=== PATIENT | male | born 1980 | race African-American/Black ===

== ENCOUNTER 2016-09-01 21:57 | Emergency (ER) | payer BC, OTHER ==
[2016-09-01] MEDS ORDERED: Ibuprofen 800 MG TAB ONE (22:12)
--- NOTE | 2016-09-01 22:38 | RAD ---
3 VIEWS OF RIGHT HAND: Date: 09/01/16 COMPARISON: None available. HISTORY: Right hand/thumb injury. FINDINGS: There is a lucent lesion within the mid shaft of the fifth proximal phalanx measuring 1.5 cm, likely on the basis of an enchondroma. There is no acute fracture or evidence of dislocation seen. IMPRESSION: No acute fracture or dislocation noted. POS: [facility]
--- NOTE | 2016-09-02 00:55 | ERRECORD ---
[facility] EMERGENCY RECORD HPI HAND (22:12 JROB) CHIEF COMPLAINT: Patient presents for evaluation of injury, to the right hand. HISTORIAN: History provided by patient, 36 year old male presents with worsening pain and swelling in right hand and thumb after injury yesterday. He was holding a lead rope when a horse got loose and when the horse leaned against the rope it pulled hard against his hand. MECHANISM OF INJURY: Known mechanism. LOCATION: Symptoms are localized, most severe in the first metacarpal, most severe to the thumb. SEVERITY: Current severity of pain rated as 8/10. TIME COURSE: Sudden onset of symptoms, Symptoms are worsening. ASSOCIATED WITH: No associated clavicle pain, No associated coolness to touch, No associated distal neuro complaint, No associated elbow pain, No associated erythema, No associated open wounds, No associated tingling, No associated weakness distal to injury, No associated wrist pain. EXACERBATED BY: Patient's condition exacerbated by movement, Patient's condition exacerbated by palpation. RELIEVED BY: Patient's condition relieved by nothing. ROS (22:14 JROB) CARDIOVASCULAR: Historian denies chest pain. RESPIRATORY: Historian denies shortness of breath. GI: Historian denies nausea, denies vomiting. MUSCULOSKELETAL: Historian reports injury. SKIN: Historian denies skin lesions, negative abrasions. NEUROLOGIC: Historian denies focal weakness, denies sensory changes. HEMO/LYMPHATIC: Historian denies abnormal blood clotting. ALLERGIC/IMMUNOLOGIC: Historian denies frequent infections. PSYCHIATRIC: Historian denies drug abuse. NOTES: All systems reviewed, negative except as described above. PAST MEDICAL HISTORY MEDICAL HISTORY: Flu vaccine not up to date, Tetanus immunization up to date, Pneumococcal vaccine not up to date, Past medical history includes pulmonary disease, asthma, Past medical history includes gastrointestinal disease, inflammatory bowel disease: Crohn's, Past medical history includes gastrointestinal disease, inflammatory bowel disease: ulcerative colitis, sickle cell trait. (22:11 [facility]) MALE SURGICAL HISTORY: BACK SX (JUN 2016), Surgical history of orthopedic surgery, Emergency Left knee surgery, Date of surgery 2007. (22:11 [facility]) PSYCHIATRIC HISTORY: No previous psychiatric history, No previous psychiatric history. (22:11 [facility]) SOCIAL HISTORY: Patient drinks socially, every week, &a-1R&a+25V*p+0X*f1197W*c202B*c15G*c2P*p-0X&a-25V&a+1R Name: Stephen Whitehead JR : 1980 M36 MedRec: [id number] AcctNum: [id number] Prepared: Ilene Sep 01, 2016 22:44 by Interface Page 1 of 3 pMD [facility] EMERGENCY RECORD Alcohol history notes: "weekends only", Patient denies drug use, Patient has no smoking history, Lives at home, with family,. (22:11 [facility]) FAMILY HISTORY: Family history is non-contributory to this case. (22:11 LK) NOTES: Nursing records reviewed, Agree with nursing records, Medication list reviewed. (22:18 JROB) KNOWN ALLERGIES No Known Drug Allergies CURRENT MEDICATIONS (22:12 LK) Flexeril: TABLET : Strength - 10 mg : ORAL Patient Dose: 10 mg Oral As Needed.AT BEDTIME. VITAL SIGNS (22:08 [facility]) VITAL SIGNS: BP: 148/88, Pulse: 97, Resp: 16, Temp: 98.8 (Oral), Pain: 8, O2 sat: 94 on Room Air, Time: 09/01/2016 22:08. PHYSICAL EXAM (22:16 JR) CONSTITUTIONAL: Vital Signs Reviewed, Patient afebrile, Pulse normal, Blood pressure, hypertensive, borderline, Patient alert and oriented to person, place and time. HEAD: Head exam normal, Head exam included findings of head atraumatic, normocephalic. EYES: Eye exam normal, Pupils equally round and reactive to light, Extraocular muscles intact. ENT: Nose exam normal, Pharynx exam normal, Mouth exam normal. NECK: Neck exam normal, no tenderness, no abrasions, no contusions, no ecchymosis. RESPIRATORY CHEST: Respiratory and chest exam normal, Breath sounds clear, No wheezing, No rales, No rhonchi. CARDIOVASCULAR: Cardiovascular assessment normal, Cardiovascular exam included findings of heart rate regular rate and rhythm, Heart sounds normal. BACK: Back exam normal, Back exam included findings of normal inspection. UPPER EXTREMITY: distal motor intact, distal sensory intact, Right upper extremity - moderate tenderness over thumb and index finger diffusely, 1st webspace, 1st metacarpal with mild swelling. ROM thumb is limited in all planes. Distal sensation intact, cap refill is brisk. Remainder of hand and finger exam is negative. Exam proximal to hand is negative for additional acute injury. LOWER EXTREMITY: Lower extremity exam normal. NEURO: Neuro exam findings include patient oriented to person, place and time, no focal motor deficits, no focal sensory deficits. SKIN: Skin exam included findings of skin warm, dry. &a-1R&a+25V*p+0X*d3873B*c202B*c15G*c2P*p-0X&a-25V&a+1R Name: Stephen Whitehead JR : 1980 M36 MedRec: [id number] AcctNum: [id number] Prepared: Ilene Sep 01, 2016 22:44 by Interface Page 2 of 3 pMD [facility] EMERGENCY RECORD RADIOLOGYINTERPRETATION (22:33 JROB) UPPER EXTERMITIES: Radiological interpretation of, the right hand shows, no fractures, no dislocations, bone lucent lesion in proximal phalanx of small finger, unrelated to injury,. 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 MEDICATION ADMINISTRATION SUMMARY Drug Name: ibuprofen, Dose Ordered: 800 mg, Route: Oral, Status: Given, Time: 22:14 09/01/2016, Detailed record available in Medication Service section. DOCTOR NOTES TEXT: Ordered Motrin, xray. (22:19 JROB) Xray negative for fracture. Will place splint, d/c home to f/u with orthopedics. Discussed with patient, concern for UCL injury to thumb. Discussed ice, elevation, continue Motrin 800mg, f/u with ortho in 5-7 days if limited ROM persists. (22:35 JROB) PATIENT STATUS: Patient has improved since arrival to emergency department. (22:35 JROB) PATIENT PLAN: The patient will be discharged, The patient will follow up with primary care physician. (22:35 JROB) DATA REVIEWED: Xray data reviewed. (22:35 JROB) PROBLEM LIST No recorded problems DIAGNOSIS DIFFERENTIAL: Based on history, exam and ancillary studies if indicated: Impression: fracture, Impression: sprain, Impression: right hand, Impression: UCL injury, Diagnoses considered are not limited to those documented above. (22:36 JROB) FINAL: PRIMARY: Thumb sprain. (22:37 JROB) PRESCRIPTION No recorded prescriptions DISPOSITION PATIENT: Disposition Type: Discharge, Disposition: *Discharge Home. (22:37 ARABELLA) Patient left the department. (22:42 MELISSA) Hill: ARABELLA=MD Rodger, Petar TORRES=COLT Alston, Chani &a-1R&a+25V*p+0X*g7174G*c202B*c15G*c2P*p-0X&a-25V&a+1R Name: Stephen Whitehead JR : 1980 M36 MedRec: [id number] AcctNum: [id number] Prepared: Ilene Sep 01, 2016 22:44 by Interface Page 3 of 3 pMD MTDD
--- NOTE | 2016-09-02 00:58 | PICIS ---
[facility] EMERGENCY RECORD TRIAGE (22:07 [facility]) PATIENT: NAME: Stephen Whitehead JR, AGE: 36, GENDER: male, : Po 1980, TIME OF GREET: Sun Sep 01, 2016 21:58, PREFERRED LANGUAGE: Citizen Of [place], ETHNICITY: Not or , ECODE BILLING MAP: [facility], SSN: [id number], Zip Code: [address], KG WEIGHT: 97.07 (est.), PHONE: , , , PERSON ID: [id number], PCP: OOT. (22:07 LK) TRIAGE NOTES: RIGHT THUMB/HAND PAIN. LEAD ROPE GOT WRAPPED AROUND HAND LAST NIGHT WHEN HE WAS TRYING TO PIN A HORSE THAT GOT LOOSE. (22:07 LK) COMPLAINT: PAIN RIGHT HAND. (22:07 [facility]) ADMISSION: URGENCY: 4 Non Urgent, ADMISSION SOURCE: Home, TRANSPORT: CAR, BED: TRIAGE. (22:07 LK) ASSESSMENT: Symptoms began 09/01/2016 01:00. (22:11 LK) PAIN: Patient complains of pain described as, sharp, on a scale 0-10 patient rates pain as 8, Location RIGHT HAND/THUMB, Onset was 09/01/2016 01:00. (22:11 LK) IMMUNIZATIONS: Flu vaccine not up to date, Tetanus immunization up to date, Pneumococcal vaccine not up to date. (22:11 LK) SIRS SCORING: Heart Rate 55-109 (0), Temp range 96.8-101.1 (0), respiratory rate 12-24 (0), Mental Status altered: no (0). (22:11 LK) TRIAGE SCREENING: Patient denies suicidal ideation, Patient denies presence of domestic violence. (22:11 LK) TREATMENTS IN PROGRESS: Treatments given Prehospital: NONE. (22:11 LK) PROVIDERS: TRIAGE NURSE: Chani Alston RN. (22:07 [facility]) VITAL SIGNS: BP 148/88, Pulse 97, Resp 16, Temp 98.8, (Oral), Pain 8, O2 Sat 94, on Room Air, Time 09/01/2016 22:08. (22:08 LK) PREVIOUS VISIT ALLERGIES: No Known Drug Allergies. (22:07 [facility]) No Known Drug Allergies. (22:11 [facility]) KNOWN ALLERGIES No Known Drug Allergies CURRENT MEDICATIONS (22:12 [facility]) Flexeril: TABLET : Strength - 10 mg : ORAL Patient Dose: 10 mg Oral As Needed.AT BEDTIME. VITAL SIGNS (22:08 [facility]) VITAL SIGNS: BP: 148/88, Pulse: 97, Resp: 16, Temp: 98.8 (Oral), Pain: 8, O2 sat: 94 on Room Air, Time: 09/01/2016 22:08. NURSING ASSESSMENT: EXTREMITY UPPER (22:10 [facility]) CONSTITUTIONAL: Complex assessment performed, Patient arrives ambulatory, Gait steady, History obtained from patient, Patient &a-1R&a+25V*p+0X*l0298Y*c202B*c15G*c2P*p-0X&a-25V&a+1R Name: Stephen Whitehead Suma MAJOR : 1980 M36 MedRec: [id number] AcctNum: [id number] Prepared: Ilene Sep 01, 2016 22:50 by Interface Page 1 of 6 pMD [facility] EMERGENCY RECORD appears comfortable, Patient cooperative, Patient alert, Oriented to person, place and time, Skin warm, Skin dry, Skin normal in color, Mucous membranes pink, Mucous membranes moist, Patient is well-groomed, Patient complains of RIGHT HAND/THUMB PAIN. PAIN: sharp pain, to the right hand, RIGHT THUMB, Onset of pain 09/01/2016 01:00, on a scale 0-10 patient rates pain as 8, "HURTS MOSTLY WHEN I BUMP IT ON SOMETHING". RIGHT UPPER EXTREMITY: Right upper extremity assessment findings include capillary refill less than 2 seconds, Skin color normal to hand, Skin temperature to hand warm, Distal sensation intact, Muscle tone normal, radial pulse is +3, Inspection findings include swelling. NURSING PROCEDURE: BEDSIDE RADIOLOGY BEDSIDE RADIOLOGY: Portable x-ray performed, of the right hand. (22:16 [facility]) FOLLOW-UP: After procedure, ice therapy applied. (22:19 [facility]) NURSING PROCEDURE: DISCHARGE NOTE (22:42 [facility]) DISCHARGE: Patient discharged to home, ambulating without assistance, driving self, unaccompanied, Summary of Care printed/ provided, Discharge instructions given to patient, Simple or moderate discharge teaching performed, by COLT Tobar, discharge instructions and reviewed with patient using teachback method. RICE instructions given. (Rest, Ice, Compression, Elevate). wear splint for the next week. if pain or limited ROM persists for 2-3 days follow up with orthopedic surgeon., Above person(s) verbalized understanding of discharge instructions and follow-up care. BELONGINGS: Belongings and valuables with patient upon arrival to the Emergency Department include:, Belongings and valuables with patient at time of discharge include:, Belongings remain with patient, Valuables remain with patient. NURSING PROCEDURE: NURSE NOTES (22:12 [facility]) NURSES NOTES: Ice packs applied. NURSING PROCEDURE: SPLINTING PATIENT IDENTIFIER: Patient actively involved in identification process, Patient's identity verified by patient stating name, Patient's identity verified by patient stating date, Patient's identity verified by hospital ID bracelet. (22:36 [facility]) SPLINTING: Splinting indicated for sprain care, Splint applied to, the right hand, by RN, velcro wrist splint applied, Immobilized in position of function, with thumb spica, Injury to dominant hand, Patient right hand dominant. (22:38 JROB) Splinting indicated for sprain care, Splint applied to, the right hand, by COLT TOBAR, velcro wrist splint applied, Immobilized in position of function, Injury to dominant hand, Patient right hand dominant. (22:36 [facility]) &a-1R&a+25V*p+0X*b3479H*c202B*c15G*c2P*p-0X&a-25V&a+1R Name: Stephen Whitehead JR : 1980 M36 MedRec: [id number] AcctNum: [id number] Prepared: Ilene Sep 01, 2016 22:50 by Interface Page 2 of 6 pMD [facility] EMERGENCY RECORD FOLLOW-UP: After procedure, distal circulation intact, After procedure, distal sensation intact. (22:38 JROB) After procedure, capillary refill less than 2 seconds, After procedure, distal circulation intact, After procedure, distal motor function intact, After procedure, distal sensation intact, After procedure, distal pulses present. (22:36 [facility]) ORDER DETAILS Order Name: XR Hand Rt 3 View STANDARD, Status: Active, Time: 22:11 09/01/2016, User: ARABELLA, - Ordered for: MD Soares Joseph, - Entered by: MD Soares Joseph - Ilene Sep 01, 2016 22:11, - Quantity: 1. MEDICATION ADMINISTRATION SUMMARY Drug Name: ibuprofen, Dose Ordered: 800 mg, Route: Oral, Status: Given, Time: 22:14 09/01/2016, Detailed record available in Medication Service section. MEDICATION SERVICE (22:14 [facility]) ibuprofen: Order: ibuprofen - Dose: 800 mg : Oral Schedule: Now Ordered by: Petar Soares MD Entered by: MD Ilene Samuels Sep 01, 2016 22:10 , Acknowledged by: COLT Carrion Sep 01, 2016 22:12 Documented as given by: COLT Carrion Sep 01, 2016 22:14 Patient, Medication, Dose, Route and Time verified prior to administration. Amount given: 800MG, Site: Medication administered P.O., Patient appears Awake and alert- acceptable, Correct patient, time, route, dose and medication confirmed prior to administration, Patient advised of actions and side-effects prior to administration, Allergies confirmed and medications reviewed prior to administration. HPI HAND (22:12 [facility]) CHIEF COMPLAINT: Patient presents for evaluation of injury, to the right hand. HISTORIAN: History provided by patient, 36 year old male presents with worsening pain and swelling in right hand and thumb after injury yesterday. He was holding a lead rope when a horse got loose and when the horse leaned against the rope it pulled hard against his hand. MECHANISM OF INJURY: Known mechanism. LOCATION: Symptoms are localized, most severe in the first metacarpal, most severe to the thumb. SEVERITY: Current severity of pain rated as 8/10. TIME COURSE: Sudden onset of symptoms, Symptoms are worsening. ASSOCIATED WITH: No associated clavicle pain, No associated coolness to &a-1R&a+25V*p+0X*y7103O*c202B*c15G*c2P*p-0X&a-25V&a+1R Name: Stephen Whitehead JR : 1980 M36 MedRec: [id number] AcctNum: [id number] Prepared: Ilene Sep 01, 2016 22:50 by Interface Page 3 of 6 pMD [facility] EMERGENCY RECORD touch, No associated distal neuro complaint, No associated elbow pain, No associated erythema, No associated open wounds, No associated tingling, No associated weakness distal to injury, No associated wrist pain. EXACERBATED BY: Patient's condition exacerbated by movement, Patient's condition exacerbated by palpation. RELIEVED BY: Patient's condition relieved by nothing. ROS (22:14 [facility]) CARDIOVASCULAR: Historian denies chest pain. RESPIRATORY: Historian denies shortness of breath. GI: Historian denies nausea, denies vomiting. MUSCULOSKELETAL: Historian reports injury. SKIN: Historian denies skin lesions, negative abrasions. NEUROLOGIC: Historian denies focal weakness, denies sensory changes. HEMO/LYMPHATIC: Historian denies abnormal blood clotting. ALLERGIC/IMMUNOLOGIC: Historian denies frequent infections. PSYCHIATRIC: Historian denies drug abuse. NOTES: All systems reviewed, negative except as described above. PAST MEDICAL HISTORY MEDICAL HISTORY: Flu vaccine not up to date, Tetanus immunization up to date, Pneumococcal vaccine not up to date, Past medical history includes pulmonary disease, asthma, Past medical history includes gastrointestinal disease, inflammatory bowel disease: Crohn's, Past medical history includes gastrointestinal disease, inflammatory bowel disease: ulcerative colitis, sickle cell trait. (22:11 LK) MALE SURGICAL HISTORY: BACK SX (JUN 2016), Surgical history of orthopedic surgery, Emergency Left knee surgery, Date of surgery 2007. (22:11 LK) PSYCHIATRIC HISTORY: No previous psychiatric history, No previous psychiatric history. (22:11 LK) SOCIAL HISTORY: Patient drinks socially, every week, Alcohol history notes: "weekends only", Patient denies drug use, Patient has no smoking history, Lives at home, with family,. (22:11 LK) FAMILY HISTORY: Family history is non-contributory to this case. (22:11 LK) NOTES: Nursing records reviewed, Agree with nursing records, Medication list reviewed. (22:18 [facility]) PHYSICAL EXAM (22:16 [facility]) CONSTITUTIONAL: Vital Signs Reviewed, Patient afebrile, Pulse normal, Blood pressure, hypertensive, borderline, Patient alert and oriented to person, place and time. HEAD: Head exam normal, Head exam included findings of head &a-1R&a+25V*p+0X*d2462X*c202B*c15G*c2P*p-0X&a-25V&a+1R Name: Stephen Whitehead JR : 1980 M36 MedRec: [id number] AcctNum: [id number] Prepared: Ilene Sep 01, 2016 22:50 by Interface Page 4 of 6 pMD [facility] EMERGENCY RECORD atraumatic, normocephalic. EYES: Eye exam normal, Pupils equally round and reactive to light, Extraocular muscles intact. ENT: Nose exam normal, Pharynx exam normal, Mouth exam normal. NECK: Neck exam normal, no tenderness, no abrasions, no contusions, no ecchymosis. RESPIRATORY CHEST: Respiratory and chest exam normal, Breath sounds clear, No wheezing, No rales, No rhonchi. CARDIOVASCULAR: Cardiovascular assessment normal, Cardiovascular exam included findings of heart rate regular rate and rhythm, Heart sounds normal. BACK: Back exam normal, Back exam included findings of normal inspection. UPPER EXTREMITY: distal motor intact, distal sensory intact, Right upper extremity - moderate tenderness over thumb and index finger diffusely, 1st webspace, 1st metacarpal with mild swelling. ROM thumb is limited in all planes. Distal sensation intact, cap refill is brisk. Remainder of hand and finger exam is negative. Exam proximal to hand is negative for additional acute injury. LOWER EXTREMITY: Lower extremity exam normal. NEURO: Neuro exam findings include patient oriented to person, place and time, no focal motor deficits, no focal sensory deficits. SKIN: Skin exam included findings of skin warm, dry. EVENTS TRANSFER: Triage to Emergency Triage. (22:07 [facility]) Emergency Triage to Emergency Room -02. (22:07 LK) Removed from Emergency Emergency Room -02. (22:42 LK) RADIOLOGYINTERPRETATION (22:33 JROB) UPPER EXTERMITIES: Radiological interpretation of, the right hand shows, no fractures, no dislocations, bone lucent lesion in proximal phalanx of small finger, unrelated to injury,. FILM SPLICER: Preliminary review of x-rays by, Radiologist. O2SAT INTERPRETATION (22:18 JROB) O2SAT: Single pulse oximetry, Oxygen saturation 94%, Oxygen saturation interpretation: Low normal, Intervention required: patient observed. DOCTOR NOTES TEXT: Ordered Motrin, xray. (22:19 JROB) Xray negative for fracture. Will place splint, d/c home to f/u with orthopedics. Discussed with patient, concern for UCL injury to thumb. Discussed ice, elevation, continue Motrin 800mg, f/u with ortho in 5-7 days if limited ROM persists. (22:35 JROB) PATIENT STATUS: Patient has improved since arrival to emergency department. (22:35 JROB) PATIENT PLAN: The patient will be discharged, The patient will follow up with primary care physician. (22:35 JR[facility]) &a-1R&a+25V*p+0X*b1721X*c202B*c15G*c2P*p-0X&a-25V&a+1R Name: Stephen Whitehead JR : 1980 M36 MedRec: [id number] AcctNum: [id number] Prepared: Ilene Sep 01, 2016 22:50 by Interface Page 5 of 6 pMD [facility] EMERGENCY RECORD DATA REVIEWED: Xray data reviewed. (22:35 JROB) PROBLEM LIST No recorded problems DIAGNOSIS DIFFERENTIAL: Based on history, exam and ancillary studies if indicated: Impression: fracture, Impression: sprain, Impression: right hand, Impression: UCL injury, Diagnoses considered are not limited to those documented above. (22:36 JR[facility]) FINAL: PRIMARY: Thumb sprain. (22:37 JR[facility]) DISPOSITION PATIENT: Disposition Type: Discharge, Disposition: *Discharge Home. (22:37 JROB) Patient left the department. (22:42 [facility]) INSTRUCTION (22:38 JROB) DISCHARGE: HAND SPRAIN. FOLLOWUP: MD Becerra Justin, Orthopedic Surgery, [address], [address], [place] [address], [place], , Follow up with Primary Care Physician as needed, Follow up with Specialist in 5 days. SPECIAL: Follow-up with orthopedics if pain or limited range of motion persists for more than 2-3 days. We hope you feel better soon! We are always happy to take care of you and your family! Return to the ER immediately for any new, concerning, or worsening symptoms. PRESCRIPTION No recorded prescriptions IMAGING DME FORM: Image captured from scanner. (22:36 [facility]) *DISCHARGE INSTRUCTIONS RECEIPT: Image captured from scanner. (22:44 [facility]) *SUPPLY CHARGE SHEET: Image captured from scanner. (22:44 [facility]) ADMIN (22:39 [facility]) DIGITAL SIGNATURE: MD Soares Joseph. Hill: ARABELLA=MD Soares Joseph RC=COLT Alston, Chani MBOS=COLT Crain, Savana &a-1R&a+25V*p+0X*s6513Y*c202B*c15G*c2P*p-0X&a-25V&a+1R Name: Stephen Whitehead JR : 1980 M36 MedRec: [id number] AcctNum: [id number] Prepared: Ilene Sep 01, 2016 22:50 by Interface Page 6 of 6 pMD MTDD
== END 2016-09-01 22:42 | disposition home or self-care (01) ==
LOC: NAV ERS 21:57
DX: S63.601A Unspecified sprain of right thumb, initial encounter (principal); J45.909 Unspecified asthma, uncomplicated; K51.90 Ulcerative colitis, unspecified, without complications; X58.XXXA Exposure to other specified factors, initial encounter
CPT/HCPCS: 99283

== ENCOUNTER 2017-03-01 02:57 | Emergency (ER) | payer OTHER, SELFPAY ==
[2017-03-01] MEDS ORDERED: Acetaminophen 500 MG TAB ONE (03:41)
[2017-03-01] MEDS ORDERED: HYDROcodone/Acetaminophen 10/325 mg Tablet ONE (03:41)
[2017-03-01] MEDS ORDERED: Ibuprofen 800 MG TAB ONE (03:41)
== END 2017-03-01 03:49 | disposition home or self-care (01) ==
LOC: NAV ERS 02:57
DX: M54.5 Low back pain (principal); D57.3 Sickle-cell trait; K51.90 Ulcerative colitis, unspecified, without complications; Z79.899 Other long term (current) drug therapy
CPT/HCPCS: 99283

== ENCOUNTER 2017-04-01 17:02 | Emergency (ER) | payer OTHER, SELFPAY ==
[2017-04-01] MEDS ORDERED: Dicyclomine HCl 20 mg/2 ml Ampule ONE (17:28)
[2017-04-01] MEDS ORDERED: Acetaminophen 500 MG TAB ONE (17:28)
[2017-04-01] MEDS ORDERED: Sodium Chloride 0.9% 1,000 ML ONE (17:28)
[2017-04-01 17:43] LABS: Bilirubin Negative (Negative); Blood, Urine Trace (Negative); Glucose, Urine (Dipstick) Negative (Negative); Leukocyte Negative (Negative); Nitrite Negative (Negative); Protein, Urine (Dipstick) Negative (Neg-Trace); Specific Gravity, Urine 1.025 (1.005-1.030)
[2017-04-01 17:52] LABS: #Basophils 0.1 thou/uL (0.0-0.2); #Eosinphils 0.1 thou/uL (0.0-0.7); #Lymphocytes 1.6 thou/uL (1.20-3.40); #Monocytes 0.6 thou/uL (0.11-0.59); %Basophils 0.8 % (0.0-1.0); %Eosinophils 1.3 % (0.0-10.0); %Lymphocytes 21.6 % (21.0-51.0); %Monocytes 7.8 % (0.0-10.0); %Neutrophils 68.5 % (42.0-75.0); Hemoglobin 12.3 g/dL (14.0-18.0); Mean Corpuscular HGB CONC 29.9 g/dL (32.0-36.0); Mean Corpuscular Hemoglobin 19.4 pg (27.0-31.0); Mean Corpuscular Volume 65.1 fl (80.0-94.0); Mean Platelet Volume 6.4 fL (7.4-10.4); Platelet Count 267 thou/uL (130-400); RBC Distribution Width 13.1 % (11.5-14.5); Red Blood Cell (RBC) Count 6.32 mill/uL (4.70-6.10); White Blood Cell (WBC) Count 7.2 thou/uL (4.8-10.8)
[2017-04-01 17:53] LABS: Clarity SL HAZY (Clear)
[2017-04-01 18:03] LABS: RBC/HPF 0-3 HPF (0-3); Squamous Epithelial 0-3 HPF (0-3); WBC/HPF 0-3 HPF (0-3)
[2017-04-01 18:05] LABS: ALT (SGPT) 29 U/L (8-55); AST (SGOT) 22 U/L (5-34); Albumin 4.2 g/dL (3.5-5.0); Alkaline Phosphatase 83 U/L (40-150); Anion Gap 12 mmol/L (10-20); BUN (Urea Nitrogen) 10 mg/dL (8.9-20.6); Bilirubin, Total 0.4 mg/dL (0.2-1.2); Calc. Creatinine Clearance 0 mL/min (70-130); Calcium 9.3 mg/dL (7.8-10.44); Carbon Dioxide 27 mmol/L (22-29); Chloride 104 mmol/L (98-107); Estimated GFR-MDRD 70; Globulin 3.6 g/dL (2.4-3.5); Glucose 95 mg/dL (70-105); Lipase 38 U/L (8-78); Potassium 3.8 mmol/L (3.5-5.1); Protein, Total 7.8 g/dL (6.0-8.3); Sodium 139 mmol/L (136-145)
== END 2017-04-01 19:45 | disposition home or self-care (01) ==
LOC: NAV ERS 17:02
DX: K50.90 Crohn's disease, unspecified, without complications (principal); J45.909 Unspecified asthma, uncomplicated
CPT/HCPCS: 80053; 81003; 81015; 82274; 83690; 85025; 96360; 96372; J7050

== ENCOUNTER 2018-03-09 18:18 | Emergency (ER) | payer OTHER, SELFPAY ==
[~2018-03-09 18:18] MED LIST: Iopamidol 370 76% 100 ML VIAL ONE
[2018-03-09] MEDS ORDERED: Ondansetron HCl/PF 4 MG/2 ML Vial ONE (19:20)
[2018-03-09 19:32] LABS: #Basophils 0.1 thou/uL (0.0-0.2); #Eosinphils 0.1 thou/uL (0.0-0.7); #Lymphocytes 0.8 thou/uL (1.20-3.40); #Monocytes 0.5 thou/uL (0.11-0.59); #Neutrophils 7.6 thou/uL (1.40-6.50); %Basophils 0.7 % (0.0-1.0); %Eosinophils 0.8 % (0.0-10.0); %Lymphocytes 8.9 % (21.0-51.0); %Monocytes 5.8 % (0.0-10.0); %Neutrophils 83.8 % (42.0-75.0); Hemoglobin 12.2 g/dL (14.0-18.0); Mean Corpuscular HGB CONC 30.6 g/dL (32.0-36.0); Mean Corpuscular Hemoglobin 19.6 pg (27.0-31.0); Mean Corpuscular Volume 64.1 fL (78.0-98.0); Mean Platelet Volume 6.8 fL (7.4-10.4); Platelet Count 301 thou/uL (130-400); Red Blood Cell (RBC) Count 6.24 mill/uL (4.70-6.10); White Blood Cell (WBC) Count 9.1 thou/uL (4.8-10.8)
[2018-03-09 19:35] LABS: Bilirubin Negative (Negative); Blood, Urine Trace (Negative); Clarity Clear (Clear); Glucose, Urine (Dipstick) Negative (Negative); Leukocyte Negative (Negative); Nitrite Negative (Negative); Protein, Urine (Dipstick) Negative (Neg-Trace); Specific Gravity, Urine 1.025 (1.005-1.030); Urobilinogen 0.2 mg/dL (0.2-1.0)
[2018-03-09] MEDS ORDERED: Acetaminophen 500 MG TAB ONE (19:37)
[2018-03-09 19:44] LABS: ALT (SGPT) 26 U/L (8-55); AST (SGOT) 16 U/L (5-34); Albumin 4.3 g/dL (3.5-5.0); Alkaline Phosphatase 73 U/L (40-150); Anion Gap 14 mmol/L (10-20); BUN (Urea Nitrogen) 15 mg/dL (8.9-20.6); Bilirubin, Total 0.6 mg/dL (0.2-1.2); Calc. Creatinine Clearance 0 mL/min (70-130); Calcium 9.4 mg/dL (7.8-10.44); Carbon Dioxide 23 mmol/L (22-29); Chloride 103 mmol/L (98-107); Estimated GFR-MDRD 71; Globulin 3.1 g/dL (2.4-3.5); Glucose 96 mg/dL (70-105); Lipase 27 U/L (8-78); Potassium 3.7 mmol/L (3.5-5.1); Protein, Total 7.4 g/dL (6.0-8.3); Sodium 136 mmol/L (136-145)
[2018-03-09 19:46] LABS: Bacteria/HPF None Seen HPF (None Seen); RBC/HPF 0-3 HPF (0-3); Squamous Epithelial 0-3 HPF (0-3); WBC/HPF None Seen HPF (0-3)
[2018-03-09 20:20] LABS: Hypochromia SLIGHT = 6-15 cells (100X) (0-5/hpf); MDiff Complete? YES; Microcytosis MODERATE=15-30 cells (100X) (0-5/hpf); PLT Morphology Comment Appears Adequate
--- NOTE | 2018-03-09 21:36 | CT ---
CT ABDOMEN AND PELVIS WITH IV CONTRAST: HISTORY: Right leg and flank pain. Mid epigastric and left lower quadrant pain and cramping. FINDINGS: Absence of oral contrast reduces the sensitivity of the exam for evaluation of bowel. There are mild dependent changes in the lung bases. No free air, free fluid, or lymphadenopathy is s een in the abdomen or pelvis. The liver, spleen, pancreas, adrenal glands, and kidneys are normal. No calcified gallstones are seen. There is no evidence of appendicitis. There is an appendicolith c lose to the junction of the appendix with the cecum. The appendix contains air. It is not abnormall y dilated or fluid filled. No periappendiceal inflammatory changes are seen. There are postop brasher es and metallic hardware from posterior spinal fusion at the L5-S1 level. IMPRESSION: No evidence of acute process. POS: [facility]
== END 2018-03-09 22:20 | disposition home or self-care (01) ==
LOC: NAV ERS 18:18
DX: R10.32 Left lower quadrant pain (principal); R50.9 Fever, unspecified; R19.7 Diarrhea, unspecified; R11.0 Nausea; D50.9 Iron deficiency anemia, unspecified
CPT/HCPCS: 74177; 80053; 81003; 81015; 83605; 83690; 85025; 87040; 93005; 94760; 96361; 96374; J2405

== ENCOUNTER 2018-04-17 10:45 | Emergency (ER) | payer SELFPAY ==
[2018-04-17] MEDS ORDERED: Acetaminophen/Codeine 30-300mg Tablet ONE (10:59)
[2018-04-17] MEDS ORDERED: Ketorolac Tromethamine 60 MG/2 ML VIAL ONE (10:59)
== END 2018-04-17 11:32 | disposition home or self-care (01) ==
LOC: NAV ERS 10:45
DX: S39.011A Strain of muscle, fascia and tendon of abdomen, initial encounter (principal); S39.92XA Unspecified injury of lower back, initial encounter; J45.909 Unspecified asthma, uncomplicated; Z79.899 Other long term (current) drug therapy; X50.9XXA Other and unspecified overexertion or strenuous movements or postures, initial encounter
CPT/HCPCS: 96372; J1885

== ENCOUNTER 2018-08-23 20:30 | Emergency (ER) | payer SELFPAY ==
[2018-08-23] MEDS ORDERED: Ibuprofen 800 MG TAB ONE (20:45)
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
== END 2018-08-23 21:08 | disposition home or self-care (01) ==
LOC: NAV ERS 20:30
DX: S90.31XA Contusion of right foot, initial encounter (principal); J45.909 Unspecified asthma, uncomplicated; K58.9 Irritable bowel syndrome, unspecified; D57.00 Hb-SS disease with crisis, unspecified; W55.19XA Other contact with horse, initial encounter

== ENCOUNTER 2018-12-06 07:17 | Emergency (ER) | payer SELFPAY | END 2018-12-06 07:52 | disposition home or self-care (01) | LOC: NAV ERS 07:17 | DX: M54.41 Lumbago with sciatica, right side (principal); J45.909 Unspecified asthma, uncomplicated; K58.9 Irritable bowel syndrome, unspecified; D57.00 Hb-SS disease with crisis, unspecified; Z79.899 Other long term (current) drug therapy | CPT/HCPCS: 99281 ==

== ENCOUNTER 2019-02-15 20:37 | Emergency (ER) | payer MEDICARE, SELFPAY | END 2019-02-15 21:06 | disposition home or self-care (01) | LOC: NAV ERS 20:37 | DX: M72.2 Plantar fascial fibromatosis (principal) | CPT/HCPCS: 99281 ==

== ENCOUNTER 2019-06-25 20:05 | Emergency (ER) | payer MEDICARE ==
[2019-06-25] MEDS ORDERED: methylPREDNISolone Acetate 40 mg/ml Vial ONE (21:12)
== END 2019-06-25 21:35 | disposition home or self-care (01) ==
LOC: NAV ERS 20:05
DX: J06.9 Acute upper respiratory infection, unspecified (principal); J01.20 Acute ethmoidal sinusitis, unspecified; K50.90 Crohn's disease, unspecified, without complications; J45.909 Unspecified asthma, uncomplicated
CPT/HCPCS: 87804; 96372; 99283; J1030

== ENCOUNTER 2019-11-09 06:24 | Emergency (ER) | payer MEDICARE ==
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
== END 2019-11-09 07:50 | disposition home or self-care (01) ==
LOC: NAV ERS 06:24
DX: S80.02XA Contusion of left knee, initial encounter (principal); W22.8XXA Striking against or struck by other objects, initial encounter

== ENCOUNTER 2020-01-22 23:13 | Emergency (ER) | payer MEDICARE ==
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
[2020-01-22] MEDS ORDERED: Lidocaine 1% (PF) 30 ML VIAL ONE (23:49)
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
[2020-01-23] MEDS ORDERED: Bacitracin 1 PK ONE (00:19)
== END 2020-01-23 00:40 | disposition home or self-care (01) ==
LOC: NAV ERS 23:13
DX: S81.012A Laceration without foreign body, left knee, initial encounter (principal); S93.401A Sprain of unspecified ligament of right ankle, initial encounter; D57.00 Hb-SS disease with crisis, unspecified; K58.9 Irritable bowel syndrome, unspecified; J45.909 Unspecified asthma, uncomplicated; W26.8XXA Contact with other sharp object(s), not elsewhere classified, initial encounter
CPT/HCPCS: 12002; J2001

== ENCOUNTER 2021-07-02 19:11 | Emergency (ER) | payer MEDICAID, MEDICARE ==
[2021-07-02] MEDS ORDERED: Ketorolac Tromethamine 30 MG/ML VIAL ONE (19:51)
[2021-07-02] MEDS ORDERED: Sodium Chloride 0.9% 1,000 ML ONE (19:51)
[2021-07-02] MEDS ORDERED: Metoclopramide HCl 10 MG/2 ML VIAL ONE (19:51)
[2021-07-02] MEDS ORDERED: diphenhydrAMINE 50 MG/ML VIAL ONE (19:51)
[2021-07-02 20:28] LABS: Anion Gap 13 mmol/L (10-20); BUN (Urea Nitrogen) 13 mg/dL (8.9-20.6); Calc. Creatinine Clearance 0 mL/min (70-130); Calcium 9.5 mg/dL (7.8-10.44); Carbon Dioxide 26 mmol/L (22-29); Chloride 104 mmol/L (98-107); Glucose 92 mg/dL (70-105); Potassium 3.5 mmol/L (3.5-5.1); Sodium 139 mmol/L (136-145)
== END 2021-07-02 20:42 | disposition home or self-care (01) ==
LOC: NAV ERS 19:11
DX: G43.909 Migraine, unspecified, not intractable, without status migrainosus (principal); I10 Essential (primary) hypertension; J45.909 Unspecified asthma, uncomplicated
CPT/HCPCS: 80048; 96365; 96375; J1200; J1885; J2765; J7050

== ENCOUNTER 2022-10-15 23:44 | Emergency (ER) | payer MEDICARE, SELFPAY ==
[2022-10-16 00:35] LABS: Bilirubin Negative (Negative); Blood, Urine Trace (Negative); Clarity Clear (Clear); Glucose, Urine (Dipstick) Negative (Negative); Ketone, Urine Negative (Negative); Leukocyte Negative (Negative); Nitrite Negative (Negative); Protein, Urine (Dipstick) Negative (Neg-Trace); Specific Gravity, Urine 1.025 (1.002-1.036); pH, Urine 6.5 (5.0-9.0)
[2022-10-16 00:36] LABS: Bacteria/HPF None Seen HPF (None Seen); RBC/HPF None Seen HPF (0-3); Squamous Epithelial None Seen HPF (0-3); WBC/HPF None Seen HPF (0-3)
[2022-10-16] MEDS ORDERED: Ketorolac Tromethamine 60 MG/2 ML VIAL ONE (00:46)
== END 2022-10-16 01:15 | disposition home or self-care (01) ==
LOC: NAV ERS 23:44
DX: M54.50 Low back pain, unspecified (principal); G89.29 Other chronic pain; J45.909 Unspecified asthma, uncomplicated; K21.9 Gastro-esophageal reflux disease without esophagitis
CPT/HCPCS: 81003; 81015; 96372; 99283; J1885

== ENCOUNTER 2025-04-24 22:14 | Emergency (ER) | payer MEDICARE ==
[2025-04-24] MEDS ORDERED: cloNIDine 0.1 MG TAB ONE (23:00)
[2025-04-24] MEDS ORDERED: Acetaminophen 500 MG TAB ONE (23:00)
[2025-04-24 23:18] LABS: Glucose, Urine (Dipstick) Negative (Negative); Leukocyte Negative (Negative); Protein, Urine (Dipstick) Negative (Neg-Trace); Specific Gravity, Urine 1.020 (1.005-1.030)
[2025-04-24 23:19] LABS: #Basophils 0.1 thou/uL (0.0-0.2); #Eosinophils 0.3 thou/uL (0.0-0.7); #Lymphocytes 1.7 thou/uL (1.20-3.40); #Monocytes 0.7 thou/uL (0.11-0.59); #Neutrophils 3.1 thou/uL (1.40-6.50); %Basophils 1.2 % (0.0-1.0); %Eosinophils 5.3 % (0.0-10.0); %Lymphocytes 28.9 % (21.0-51.0); %Monocytes 11.4 % (0.0-10.0); %Neutrophils 53.3 % (42.0-75.0); Hematocrit 39.6 % (42.0-52.0); Hemoglobin 12.3 g/dL (14.0-18.0); Mean Corpuscular Hemoglobin 20.2 pg (27.0-31.0); Mean Corpuscular Volume 65.1 fl (78.0-98.0); Platelet Count 292 10x3/uL (130-400); Red Blood Cell (RBC) Count 6.09 mill/uL (4.70-6.10); White Blood Cell (WBC) Count 5.8 10x3/uL (4.8-10.8)
[2025-04-24 23:26] LABS: ALT (SGPT) 24 U/L (Less than 45); AST (SGOT) 23 U/L (11-34); Albumin 4.2 g/dL (3.1-4.5); Alkaline Phosphatase 64 U/L (40-110); Anion Gap 16 mmol/L (10-20); BUN (Urea Nitrogen) 13 mg/dL (8.9-20.6); Bilirubin, Total 0.5 mg/dL (0.3-1.2); Calc. Creatinine Clearance 0 mL/min (70-130); Calcium 9.0 mg/dL (7.8-10.44); Carbon Dioxide 24 mmol/L (22-29); Chloride 105 mmol/L (98-107); Globulin 3.3 g/dL (2.4-3.5); Glucose 101 mg/dL (70-105); Potassium 3.5 mmol/L (3.5-5.1); Sodium 141 mmol/L (136-145)
[2025-04-24 23:26] LABS: Cocaine Metabolite Screen Negative (Negative); THC/Cannabinoid Screen Negative (Negative); Tricyclic Screen Negative (Negative)
[2025-04-24 23:28] LABS: Bacteria/HPF Rare-Few HPF (None Seen); CAUTI Indications for Culture Alt mental st,lethar; RBC/HPF 0-3 HPF (0-3); WBC/HPF 0-3 HPF (0-3)
[2025-04-24 23:29] LABS: Urine Culture Reflex No No
[2025-04-25] MEDS ORDERED: Ketorolac Tromethamine 30 MG (1 mL) VIAL ONE (00:21)
[2025-04-25 01:06] LABS: Anisocytosis SLIGHT = 6-15 cells (100X) (0-5/hpf); Microcytosis SLIGHT = 6-15 cells (100X) (0-5/hpf)
[2025-04-25 01:12] LABS: Basophilic Stippling SLIGHT = 1-2 cells (100X) (None Seen)
[2025-04-25 01:14] LABS: Platelet Adequacy Comment Appears Adequate
== END 2025-04-25 02:31 | disposition home or self-care (01) ==
LOC: NAV ERS 22:14
DX: I10 Essential (primary) hypertension (principal)
CPT/HCPCS: 70450; 80053; 80306; 81001; 85025; 93005; 96374; 96375; J1885; J2919; J7030

== ENCOUNTER 2025-08-06 09:18 | Emergency (ER) | payer MEDICARE ==
[2025-08-06] MEDS ORDERED: Ibuprofen 200 MG TAB ONE (09:30)
== END 2025-08-06 10:33 | disposition home or self-care (01) ==
LOC: NAV ERS 09:18
DX: B34.9 Viral infection, unspecified (principal); R29.700 NIHSS score 0
CPT/HCPCS: 71046; 87428